=== PATIENT | male | born 2000 | race Caucasian/White ===

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

== ENCOUNTER 2019-01-30 21:38 | Emergency (ER) | payer BC, OTHER ==
[~2019-01-30] VITALS: Ht 165.1 cm; Wt 84.2 kg
[~2019-01-30 21:38] MED LIST changes: +ACET500C5 PO; +BEN50 PO; +EPIN0.3P4 IM; +IBUP-1542 PO; +RANI150T35 PO
[2019-01-30 21:56] VITALS: Ht 165.1 cm; Wt 84.2 kg
[2019-01-31 01:22] VITALS: BP 127/80; PULSE 94; RESP 17
== END 2019-01-31 01:22 | disposition home or self-care (01) ==
LOC: FTE 21:38
DX: B27.90 Infectious mononucleosis, unspecified without complication (principal); Z91.010 Allergy to peanuts
CPT/HCPCS: 36415; 86308; 99283